=== PATIENT | female | born 1925 | race Caucasian/White ===

== ENCOUNTER → 2016-05-15 | Outpatient (CLI) | payer MEDICARE, BC ==
[~2016-05-15] MED LIST: ALL220TA PO; ASPI81TA11 PO; GABA100C4 PO; LEVO.05 PO; STOO100T; SULF-154 PO; TRAM50TA PO; ZOFR4TAB3 PO
[2016-05-15 15:51] LABS: AUTOMATED NEUTROPHIL # 2.2 TH/MM3 (1.8-7.7); BASOPHIL % 0.6 % (0.0-2.0); EOSINOPHIL # 0.1 TH/MM3 (0-0.4); EOSINOPHIL % 1.5 % (0.0-4.0); HEMATOCRIT 33.1 % (35.0-46.0); LYMPH % 28.9 % (9.0-44.0); MEAN CELL VOLUME 96.6 FL (80.0-100.0); MEAN CORPUSCULAR HEMOGLOBIN 33.8 PG (27.0-34.0); MONO % 8.4 % (0.0-8.0); NEUT % 60.6 % (16.0-70.0); PLATELET COUNT 93 TH/MM3 (150-450); RED BLOOD COUNT 3.42 MIL/MM3 (4.00-5.30); WHITE BLOOD COUNT 3.6 TH/MM3 (4.0-11.0)
[2016-05-15 15:53] LABS: HEMO FLAGS AUTO DIFF
[2016-05-15 16:35] LABS: PLATELET ESTIMATE SMEAR LOW (NORMAL); PLATELET MORPHOLOGY NORMAL (NORMAL); SCAN/DIFF AUTO DIFF CONFIRMED
[2016-05-15 16:40] LABS: ALKALINE PHOSPHATASE 80 U/L (45-117); ALT (GPT) 15 U/L (10-53); ANION GAP 10 MEQ/L (5-15); AST (GOT) 29 U/L (15-37); BICARBONATE 26.6 MEQ/L (21.0-32.0); BLOOD UREA NITROGEN 11 MG/DL (7-18); CHLORIDE 105 MEQ/L (98-107); GLOMERULAR FILTRATION RATE 76 ML/MIN (>89); SODIUM (NA) 142 MEQ/L (136-145); TOTAL BILIRUBIN ADULT 0.6 MG/DL (0.2-1.0)
== END ==
LOC: PLAB 13:20
PROVIDERS: ATTEND Family Medicine
DX: K74.60 Unspecified cirrhosis of liver (principal); D69.6 Thrombocytopenia, unspecified; E03.8 Other specified hypothyroidism
CPT/HCPCS: 36415; 80053; 82105; 84443; 85025

== ENCOUNTER 2016-08-25 09:34 | Emergency (ER) | payer MEDICARE, BC ==
[~2016-08-25] VITALS: Ht 152.4 cm; Wt 47.2 kg
[2016-08-25 09:38] VITALS: BP 151/97; PULSE 102; RESP 18; TEMP 98; O2SAT 94
[2016-08-25] MEDS ORDERED: GABA100C4 PO (09:57)
[2016-08-25] MEDS ORDERED: LEVO75TA3 PO (09:57)
[2016-08-25] MEDS ORDERED: LACTCAP8 PO (09:57)
[2016-08-25] MEDS ORDERED: ASPI81CH CHEW (09:58)
--- NOTE | 2016-08-25 10:06 | PD ---
HPI Chief Complaint: Headache Time Seen by Provider: 10:02 Travel History International Travel<30 days: No Contact w/Intl Traveler<30days: No Traveled to known affect area: No History of Present Illness HPI 89-year-old female with history of previous cirrhosis, hypothyroidism, hypertension, A. fib, presents to the ER today because she states that she started getting a rash on her right chin area and right earlobe, and up the scalp area and it is hurting, and is also the area where she is having a distribution of headaches. She denies any vision change or eye irritation. She also states that she also has been dealing with IBS and has had constant multiple episodes of diarrhea daily and now is also having some nausea. She denies any vomiting, fevers, abdominal pains, or any other symptoms. Modifying Factors: None Associated Signs & Symptoms: Right year, facial rash and right sided headache, nausea Risk Factors: None PFSH Past Medical History Asthma: No Atrial Fibrillation: Yes Blood Disorders: No Heart Rhythm Problems: Yes Cancer: Yes (MELANOMA (FACIAL AREA)) Cardiac Catheterization: Yes Cardiovascular Problems: Yes (MVP) High Cholesterol: No Chemotherapy: No Chest Pain: No Congestive Heart Failure: No COPD: No Cerebrovascular Accident: No Diabetes: Yes (DIET CONTROLLED) Patient Takes Glucophage: No Diminished Hearing: No Endocrine: Yes Gastrointestinal Disorders: Yes (COLITIS/IBS) GERD: No Genitourinary: No Headaches: No Hiatal Hernia: No Hypertension: Yes Immune Disorder: No Kidney Stones: Yes (APPROX 8 YEARS AGO) Medical other: Yes (SHINGLES) Musculoskeletal: No Neurologic: No Psychiatric: No Reproductive: No Respiratory: No Migraines: No Radiation Therapy: No Renal Failure: No Seizures: No Sickle Cell Disease: No Sleep Apnea: No Thyroid Disease: Yes Ulcer: Yes ?: Not Menopausal: Yes Past Surgical History Abdominal Surgery: Yes (HYSTERECTOMY, APPY) Appendectomy: Yes Cardiac Surgery: No Coronary Artery Bypass Graft: No Ear Surgery: No Endocrine Surgery: No Eye Surgery: Yes (MELANOMA REMOVED FROM INNER LT EYE) Genitourinary Surgery: No Gynecologic Surgery: Yes (HYSTERECTOMY) Hysterectomy: Yes Oral Surgery: No Thoracic Surgery: No Other Surgery: Yes (plastic surgery nose and inside corner lt inner eye for a melanoma) Family History Family Myocardial Infarction: Yes Social History Alcohol Use: No Tobacco Use: No Substance Use: No Allergies-Medications (Allergen,Severity, Reaction): Coded Allergies: Codeine (Verified Allergy, Severe, 08/25/16) Penicillin (Verified Allergy, Severe, 08/25/16) Talwin (Verified Allergy, Severe, 08/25/16) Reported Meds & Prescriptions Reported Meds & Active Scripts Active Reported Aspirin 81 Mg Chew 81 Mg CHEW DAILY Probiotic (Lactobacillus Acidophilus) 1 Cap Cap 1 Cap PO DAILY Levothyroxine (Levothyroxine Sodium) 75 Mcg Tab 75 Mcg PO DAILY Gabapentin 100 Mg Cap 100 Mg PO DAILY Review of Systems Except as stated in HPI: all other systems reviewed are Neg Physical Exam Narrative GENERAL: Well-developed elderly white female patient currently in mild distress. Awake and oriented 3. SKIN: Focused skin assessment warm/dry. There is a macular vesicular rash to the right mandibular area not crossing the midline. HEAD: Atraumatic. Normocephalic. EYES: Pupils equal and round. No scleral icterus. No injection or drainage. EARS: Bilateral pinnae and external canals appear within normal limits except for a small erythematous plaque on the right earlobe, mildly tender to palpation. Bilateral tympanic membranes without erythema, dullness or perforation. ENT: No nasal bleeding or discharge. Mucous membranes pink and moist. NECK: Trachea midline. No JVD. CARDIOVASCULAR: Regular rate and rhythm. No murmur appreciated. RESPIRATORY: No accessory muscle use. Clear to auscultation. Breath sounds equal bilaterally. GASTROINTESTINAL: Abdomen soft, non-tender, nondistended. Hepatic and splenic margins not palpable. MUSCULOSKELETAL: No obvious deformities. No clubbing. No cyanosis. No edema. NEUROLOGICAL: Awake and alert. No obvious cranial nerve deficits. Motor grossly within normal limits. Normal speech. PSYCHIATRIC: Appropriate mood and affect; insight and judgment normal. Data Data Last Documented VS Vital Signs Date Time Temp Pulse Resp B/P Pulse Ox O2 Delivery O2 Flow Rate FiO2 08/25/16 09:38 98.0 102 18 151/97 94 Orders Complete Blood Count With Diff (08/25/16 10:02) Comprehensive Metabolic Panel (08/25/16 10:02) Ondansetron Inj (Zofran Inj) (08/25/16 10:15) Labs Laboratory Tests Test 08/25/16 10:10 White Blood Count 2.5 TH/MM3 Red Blood Count 3.54 MIL/MM3 Hemoglobin 11.2 GM/DL Hematocrit 34.0 % Mean Corpuscular Volume 96.0 FL Mean Corpuscular Hemoglobin 31.6 PG Mean Corpuscular Hemoglobin 32.9 % Concent Red Cell Distribution Width 13.1 % Platelet Count 96 TH/MM3 Mean Platelet Volume 6.4 FL Neutrophils (%) (Auto) 54.8 % Lymphocytes (%) (Auto) 24.9 % Monocytes (%) (Auto) 15.9 % Eosinophils (%) (Auto) 3.3 % Basophils (%) (Auto) 1.1 % Neutrophils # (Auto) 1.4 TH/MM3 Lymphocytes # (Auto) 0.6 TH/MM3 Monocytes # (Auto) 0.4 TH/MM3 Eosinophils # (Auto) 0.1 TH/MM3 Basophils # (Auto) 0.0 TH/MM3 CBC Comment AUTO DIFF Differential Comment AUTO DIFF CONFIRMED Sodium Level 140 MEQ/L Potassium Level 4.3 MEQ/L Chloride Level 106 MEQ/L Carbon Dioxide Level 26.5 MEQ/L Anion Gap 8 MEQ/L Blood Urea Nitrogen 20 MG/DL Creatinine 0.87 MG/DL Estimat Glomerular Filtration 61 ML/MIN Rate Random Glucose 100 MG/DL Calcium Level 8.9 MG/DL Total Bilirubin 0.6 MG/DL Aspartate Amino Transf 40 U/L (AST/SGOT) Alanine Aminotransferase 20 U/L (ALT/SGPT) Alkaline Phosphatase 105 U/L Total Protein 7.8 GM/DL Albumin 3.6 GM/DL [facility] Medical Decision Making Medical Screen Exam Complete: Yes Emergency Medical Condition: Yes Medical Record Reviewed: Yes Interpretation(s) Laboratory Tests Test 08/25/16 10:10 White Blood Count 2.5 TH/MM3 (4.0-11.0) Red Blood Count 3.54 MIL/MM3 (4.00-5.30) Hemoglobin 11.2 GM/DL (11.6-15.3) Hematocrit 34.0 % (35.0-46.0) Platelet Count 96 TH/MM3 (150-450) Mean Platelet Volume 6.4 FL (7.0-11.0) Monocytes (%) (Auto) 15.9 % (0.0-8.0) Neutrophils # (Auto) 1.4 TH/MM3 (1.8-7.7) Lymphocytes # (Auto) 0.6 TH/MM3 (1.0-4.8) Blood Urea Nitrogen 20 MG/DL (7-18) Estimat Glomerular Filtration 61 ML/MIN (>89) Rate Aspartate Amino Transf 40 U/L (15-37) (AST/SGOT) Differential Diagnosis Facial rash, headaches, right earlobe rashzoster versus migraine headache versus tension headache versus cellulitis Narrative Course Lab work did not show any signs of significant leukocytosis. Metabolic panel is unremarkable. Abdomen is benign and I do not suspect an acute intra- abdominal process. At this point, symptoms are indicative of herpes zoster. My plan would be to have her follow-up with primary care physician. Return for worsening in symptoms as needed. The plan has discussed her and she states understanding. Diagnosis Primary Impression: Herpes zoster Med/Other Pt SpecificInfo: Prescription(s) given Scripts Acyclovir 800 Mg [id number] Mg PO 5 TIMES A DAY 7 Days Ref 0 Prov:Renetta Trivedi MD 08/25/16 Disposition: 01 DISCHARGE HOME Condition: Stable Renetta Trivedi MD Aug 25, 2016 10:06
[2016-08-25] MEDS ORDERED: ONDANSETRON HCL 4 MG/2 ML VIAL IV PUSH ONE (10:15)
[2016-08-25 10:21] LABS: AUTOMATED NEUTROPHIL # 1.4 TH/MM3 (1.8-7.7); BASOPHIL % 1.1 % (0.0-2.0); EOSINOPHIL # 0.1 TH/MM3 (0-0.4); EOSINOPHIL % 3.3 % (0.0-4.0); LYMPH % 24.9 % (9.0-44.0); LYMPHOCYTE # 0.6 TH/MM3 (1.0-4.8); MEAN CORPUSCULAR HEMOGLOBIN 31.6 PG (27.0-34.0); MEAN CORPUSCULAR HGB CONC 32.9 % (32.0-36.0); MONO % 15.9 % (0.0-8.0); NEUT % 54.8 % (16.0-70.0); PLATELET COUNT 96 TH/MM3 (150-450); RED BLOOD COUNT 3.54 MIL/MM3 (4.00-5.30); RED CELL DISTRIBUTION WIDTH 13.1 % (11.6-17.2); WHITE BLOOD COUNT 2.5 TH/MM3 (4.0-11.0)
[2016-08-25 10:28] LABS: HEMO FLAGS AUTO DIFF
[2016-08-25 10:31] LABS: CHLORIDE 106 MEQ/L (98-107); POTASSIUM 4.3 MEQ/L (3.5-5.1); SODIUM (NA) 140 MEQ/L (136-145)
[2016-08-25 10:35] LABS: ANION GAP 8 MEQ/L (5-15); BICARBONATE 26.5 MEQ/L (21.0-32.0)
[2016-08-25 10:36] LABS: BLOOD UREA NITROGEN 20 MG/DL (7-18)
[2016-08-25 10:38] LABS: ALT (GPT) 20 U/L (10-53); AST (GOT) 40 U/L (15-37); GLOMERULAR FILTRATION RATE 61 ML/MIN (>89)
[2016-08-25 10:40] LABS: TOTAL BILIRUBIN ADULT 0.6 MG/DL (0.2-1.0)
[2016-08-25 10:41] LABS: ALKALINE PHOSPHATASE 105 U/L (45-117)
[2016-08-25 10:49] LABS: SCAN/DIFF AUTO DIFF CONFIRMED
[2016-08-25] MEDS ORDERED: ACYC800T PO (10:57)
[2016-08-25] MEDS ORDERED: ZOFR4TAB3 SL (10:58)
[2016-08-25 11:10] VITALS: BP 119/65
== END 2016-08-25 11:14 | disposition home or self-care (01) ==
LOC: PHED 09:34
DX: B02.9 Zoster without complications (principal); R19.7 Diarrhea, unspecified; R11.0 Nausea; I10 Essential (primary) hypertension; E11.9 Type 2 diabetes mellitus without complications; E03.9 Hypothyroidism, unspecified; Z87.19 Personal history of other diseases of the digestive system; Z86.79 Personal history of other diseases of the circulatory system; Z87.448 Personal history of other diseases of urinary system; Z86.69 Personal history of other diseases of the nervous system and sense organs
CPT/HCPCS: 80053; 85025; 99284; J2405